=== PATIENT | male | born 1975 | race Caucasian/White ===

== ENCOUNTER → 2021-01-14 | Day surgery (SDC) | payer BC ==
[~2021-01-14] MED LIST: ATENOLOL50 MG PO; ATORVASTATIN CA20 MG PO; COQ-10100 MG PO; FENTANYL CITRATE/PF 100MCG/2 ML INJ ONE; GLUCAGON FOR INJ 1 MG VIAL ONE; HUMALOG100 UNIT/1 SQ; HYOSCYAMINE SULFATE 0.5 MG/ML INJ ONE; LANTUS100 UNITS/ SQ; LIDOCAINE HCL 2% LOCAL INJ 5 ML SDV VIAL INJ ONE; METFORMIN HCL500 M3; MIDAZOLAM HCL 2 MG/2 ML VIAL ONE; PANTOPRAZOLE SO40 MG PO; PROPOFOL IV EMULSION 10 MG/ML 20 ML VIAL ONE; TOUJEO SQ; TRESIBA FL100 UNIT/1 SQ; VITAMIN B COMP1 EACH PO; VITAMIN D310 MCG PO; Z.0.LISINOPRIL20 MG PO; Z.0.NIFEDICAL XL30 M PO; Z.0.TRILIPIX135 MG PO; [UNRECOGNIZED DRUG - OTHER] PO
[2021-01-14 16:15] VITALS: BP 139/85
== END | disposition home or self-care (01) ==
LOC: OR 11:32
PROVIDERS: ATTEND Internal Medicine Gastroenterology
DX: Z09 Encounter for follow-up examination after completed treatment for conditions other than malignant neoplasm (principal); K63.5 Polyp of colon; K57.30 Diverticulosis of large intestine without perforation or abscess without bleeding; K59.00 Constipation, unspecified; K64.8 Other hemorrhoids; G47.33 Obstructive sleep apnea (adult) (pediatric); I10 Essential (primary) hypertension; E11.9 Type 2 diabetes mellitus without complications; E78.5 Hyperlipidemia, unspecified; E66.9 Obesity, unspecified; Z01.810 Encounter for preprocedural cardiovascular examination; Z01.812 Encounter for preprocedural laboratory examination; Z20.822 Contact with and (suspected) exposure to COVID-19; Z79.82 Long term (current) use of aspirin; Z79.4 Long term (current) use of insulin; Z68.37 Body mass index [BMI] 37.0-37.9, adult; Z83.79 Family history of other diseases of the digestive system
CPT/HCPCS: 36415; 45384; 45385; 82948; 93005; J1610; J1980; J2001; J2250; J2704; J3010; U0002